=== PATIENT | female | born 2000 | race Caucasian/White ===

== ENCOUNTER → 2022-09-29 | Outpatient (REF) | payer MEDICAID | LOC: M PLALAB 14:07 | PROVIDERS: ATTEND Advanced Practice Midwife | DX: Z53.9 Procedure and treatment not carried out, unspecified reason (principal) ==

== ENCOUNTER → 2022-10-18 | Outpatient (CLI) | payer OTHER ==
[2022-10-18 15:13] LABS: HEMATOCRIT 45.5 % (36.0-47.0); HEMOGLOBIN 15.1 g/dl (12.0-15.5); MEAN CORPUSCULAR HEMOGLOBIN 31.9 pg (27.0-33.0); MEAN CORPUSCULAR HGB CONC 33.2 g/dl (32.0-36.5); PLATELET COUNT, AUTOMATED 273 10^3/uL (150-450); RED BLOOD COUNT 4.74 10^6/uL (4.00-5.40); WHITE BLOOD COUNT 9.3 10^3/uL (4.0-10.0)
[2022-10-18 15:41] LABS: FREE T4 0.84 NG/DL (0.83-1.43); THYROID STIMULATING HORMONE 15.142 uIU/ML (0.48-4.17)
[2022-10-18 16:13] LABS: HIV 1&2 SCREEN CENTAUR NEGATIVE (NEGATIVE)
[2022-10-18 17:22] LABS: GC DNA AMPLIFICATION NEGATIVE (NEGATIVE)
== END ==
LOC: M PLALAB 10:53
PROVIDERS: ATTEND Advanced Practice Midwife
DX: Z34.01 Encounter for supervision of normal first pregnancy, first trimester (principal)

== ENCOUNTER → 2022-12-08 | Outpatient (CLI) | payer OTHER | LOC: M WHC 13:01 | PROVIDERS: ATTEND Specialist | DX: Z34.82 Encounter for supervision of other normal pregnancy, second trimester (principal); Z3A.20 20 weeks gestation of pregnancy ==

== ENCOUNTER 2022-12-21 20:57 | Outpatient (CLI) | payer OTHER ==
[~2022-12-21] VITALS: Ht 157.5 cm; Wt 129.0 kg
[2022-12-21 21:19] VITALS: BP 136/76
[2022-12-21] MEDS ORDERED: PRENTAB9 PO (22:05)
[2022-12-21] MEDS ORDERED: LEVO100T5 PO (22:06)
[2022-12-21] MEDS ORDERED: HOME MED LIST COMPLETE! XX SCH (22:10)
[2022-12-21] MEDS ORDERED: NITR-67 PO (22:36)
== END 2022-12-21 22:38 | disposition home or self-care (01) ==
LOC: M LDO 20:57
PROVIDERS: ATTEND Specialist
DX: O26.892 Other specified pregnancy related conditions, second trimester (principal); R10.2 Pelvic and perineal pain; O99.332 Smoking (tobacco) complicating pregnancy, second trimester; F17.210 Nicotine dependence, cigarettes, uncomplicated; Z3A.21 21 weeks gestation of pregnancy
CPT/HCPCS: 59025; 81001; 87088; 87186; G0463

== ENCOUNTER → 2023-02-27 | Outpatient (CLI) | payer OTHER, SELFPAY ==
[~2023-02-27] MED LIST: LEVO100T5 PO; NITR-67 PO; PRENTAB9 PO
[2023-02-27 16:14] LABS: FREE T4 0.89 NG/DL (0.89-1.76); THYROID STIMULATING HORMONE 4.626 uIU/ML (0.55-4.78)
== END ==
LOC: M PLALAB 10:16
PROVIDERS: ATTEND Advanced Practice Midwife
DX: O99.280 Endocrine, nutritional and metabolic diseases complicating pregnancy, unspecified trimester (principal)

== ENCOUNTER → 2023-02-27 | Outpatient (CLI) | payer OTHER, SELFPAY ==
[2023-02-27 15:12] LABS: GC DNA AMPLIFICATION NEGATIVE (NEGATIVE)
[2023-02-27 16:14] LABS: HEMATOCRIT 41.4 % (36.0-47.0); HEMOGLOBIN 13.4 g/dl (12.0-15.5); MEAN CORPUSCULAR HEMOGLOBIN 31.9 pg (27.0-33.0); MEAN CORPUSCULAR HGB CONC 32.4 g/dl (32.0-36.5); MEAN CORPUSCULAR VOLUME 98.6 fl (80.0-96.0); PLATELET COUNT, AUTOMATED 276 10^3/uL (150-450); WHITE BLOOD COUNT 7.6 10^3/uL (4.0-10.0)
== END ==
LOC: M PLALAB 10:11
PROVIDERS: ATTEND Advanced Practice Midwife
DX: Z34.82 Encounter for supervision of other normal pregnancy, second trimester (principal)
CPT/HCPCS: 36415; 82950; 85027; 86850; 86900; 86901; 87810; 87850; J2790

== ENCOUNTER → 2023-03-29 | Outpatient (CLI) | payer SELFPAY, MEDICAID | LOC: M WHC 12:55 | PROVIDERS: ATTEND Advanced Practice Midwife | DX: O99.283 Endocrine, nutritional and metabolic diseases complicating pregnancy, third trimester (principal); Z3A.36 36 weeks gestation of pregnancy ==

== ENCOUNTER → 2023-04-02 | Outpatient (REF) | payer MEDICAID, OTHER | LOC: M SFHCWAGY 15:23 | PROVIDERS: ATTEND Specialist | DX: Z34.83 Encounter for supervision of other normal pregnancy, third trimester (principal) ==

== ENCOUNTER 2023-05-03 09:30 | Inpatient (IN) | payer MEDICAID, OTHER ==
[2023-05-03] VITALS (12 sets, daily range): BP systolic 119–149; BP diastolic 61–99; O2SAT 96–97
[~2023-05-03] VITALS: Ht 157.5 cm; Wt 130.7 kg
[~2023-05-03 09:30] MED LIST changes: +PRENATAL VITAMINS CHEWABLE TABLET PO SCH
[2023-05-03] MEDS ORDERED: LEVO112T2 PO (10:00)
[2023-05-03] MEDS ORDERED: HOME MED LIST COMPLETE! XX SCH (10:10)
[2023-05-03] MEDS ORDERED: LACTATED RINGER'S 1000 ML IV STA (10:17)
[2023-05-03] MEDS ORDERED: CARBOPROST TROMETHAMINE 250 MCG/ML AMP IM PRN (10:20)
[2023-05-03] MEDS ORDERED: METHYLERGONOVINE MALEATE 0.2MG/ML 1ML VIAL IM PRN (10:20)
[2023-05-03] MEDS ORDERED: OXYTOCIN DRIP 30 UNITS in IV 1 EA IV PRN (10:20)
[2023-05-03] MEDS ORDERED: TRANEXAMIC ACID INJection 1,000 MG in NS 100 ML IV PRN (10:20)
[2023-05-03] MEDS ORDERED: LR 1,000 ML IV SCH ×2 (10:20→14:05)
[2023-05-03] MEDS ORDERED: LIDOCAINE 1% MDV 20ML VIAL INFIL PRN (10:20)
[2023-05-03 10:50] LABS: HEMATOCRIT 39.6 % (36.0-47.0); HEMOGLOBIN 13.4 g/dl (12.0-15.5); MEAN CORPUSCULAR HEMOGLOBIN 32.4 pg (27.0-33.0); MEAN CORPUSCULAR HGB CONC 33.8 g/dl (32.0-36.5); MEAN CORPUSCULAR VOLUME 95.7 fl (80.0-96.0); PLATELET COUNT, AUTOMATED 271 10^3/uL (150-450); RED BLOOD COUNT 4.14 10^6/uL (4.00-5.40); WHITE BLOOD COUNT 13.4 10^3/uL (4.0-10.0)
[2023-05-03] MEDS ORDERED: ACETAMINOPHEN TAB 650MG DOSE (2X325MG) PO PRN (14:05)
[2023-05-03] MEDS ORDERED: DOCUSATE SODIUM 100MG CAPSULE PO PRN (14:05)
[2023-05-03] MEDS ORDERED: RHOGAM 300MCG (1500IU) INJ IM SCH (14:05)
[2023-05-03] MEDS ORDERED: ANUSOL HC CREAM 30GM TOP PRN (14:05)
[2023-05-03] MEDS ORDERED: OXYTOCIN DRIP 30 UNITS in IV 1 EA IV SCH (14:05)
[2023-05-03] MEDS ORDERED: ONDANSETRON 4MG 2ML VIAL IV PRN (14:05)
[2023-05-03] MEDS ORDERED: DIBUCAINE 1% OINTMENT 30GM TOP PRN (14:05)
[2023-05-03] MEDS ORDERED: IBUPROFEN 600MG TAB PO PRN (14:05)
[2023-05-03] MEDS ORDERED: ACETAMINOPHEN 500 MG TAB PO PRN (14:05)
[2023-05-03] MEDS ORDERED: IBUPROFEN 800 MG TAB PO PRN (14:05)
[2023-05-03 14:13] LABS: CORD GAS ABE A -2.8; CORD GAS HCO3 A 19.2 MMOL/L; CORD GAS O2 SAT A 99.7 %; CORD GAS PH A 7.455 UNITS; CORD GAS PO2 A 133.1 mmHg; CORD GAS SBC A 22.3 MMOL/L; CORD GAS TCO2 A 20.1 MMOL/L
[2023-05-03 14:15] LABS: CORD GAS ABE V -3.2; CORD GAS HCO3 V 22.4 MMOL/L; CORD GAS O2 SAT V 86.4 %; CORD GAS PCO2 V 42.3 mmHg; CORD GAS PH V 7.342 UNITS; CORD GAS PO2 V 42.7 mmHg; CORD GAS SBC V 21.5 MMOL/L; CORD GAS TCO2 V 23.7 MMOL/L
[2023-05-04 06:00] VITALS: BP 123/60
[2023-05-04] MEDS ORDERED: LEVOTHYROXINE 112MCG TABLET (0.112MG) PO SCH (06:00)
[2023-05-04] MEDS ORDERED: INFLUENZA QUADRIVALENT PF VACCINE 0.5ML SYRINGE IM.IMMUN ONE (16:00)
[2023-05-05] MEDS ORDERED: MEASLES,MUMPS,RUBELLA VACCINE INJ (MMR-II) SC.IMMUN ONE (09:00)
== END 2023-05-04 17:00 | disposition home or self-care (01) | DRG 560 ==
LOC: M LDO 09:30 → M LDI 10:15 → M OBS 16:00
PROVIDERS: ADMIT Obstetrics & Gynecology; ATTEND Obstetrics & Gynecology
PROC: 10E0XZZ Delivery of Products of Conception, External Approach (ICD-10-PCS; principal; 2023-05-03)
PROC: 0KQM0ZZ Repair Perineum Muscle, Open Approach (ICD-10-PCS; 2023-05-03)
DX: O48.0 Post-term pregnancy (principal); E03.9 Hypothyroidism, unspecified; Z37.0 Single live birth; Z3A.40 40 weeks gestation of pregnancy; F17.200 Nicotine dependence, unspecified, uncomplicated; O99.334 Smoking (tobacco) complicating childbirth; O99.284 Endocrine, nutritional and metabolic diseases complicating childbirth; Z79.899 Other long term (current) drug therapy; Z91.013 Allergy to seafood; O70.1 Second degree perineal laceration during delivery